=== PATIENT | male | born 1975 | race Caucasian/White ===

== ENCOUNTER → 2019-06-11 07:20 | Outpatient (CLI) | payer OTHER, SELFPAY ==
[2019-05-15 10:14] VITALS: BMI 51.7
--- NOTE | 2019-06-12 08:18 | PFT ---
INTRODUCTION: The patient is a 43-year-old male who presents for pulmonary function studies secondary to a diagnosis of dyspnea. Respiratory therapy reports good patient effort. Bronchodilators were used during testing. INTERPRETATION: Forced expiration spirometry demonstrates no evidence of a large airways obstructive ventilatory defect. There was no significant response to aerosolized bronchodilators. Spirograms are of good quality and plateau normally. Body plethysmography was performed and reveals lung volumes to be within normal limits. Diffusing capacity by single breath CO is also within normal limits at 94% of predicted. IMPRESSION: Normal spirometry, lung volumes and diffusing capacity.
== END ==
PROVIDERS: Referring Provider Internal Medicine Critical Care Medicine; Visit Provider Internal Medicine Critical Care Medicine
DX: R06.00 Dyspnea, unspecified (principal)
CPT/HCPCS: 94060; 94726; 94729

== ENCOUNTER → 2023-02-09 | Outpatient (CLI) | payer OTHER, SELFPAY ==
[2023-02-09 18:18] LABS: Hemoglobin A1c 5.4 % (3.8-5.6)
[2023-02-09 18:30] LABS: Cholesterol 194 mg/dL (200); High Density Lipoprotein 39 mg/dL; Rheumatoid Factor < 10.0 IU/mL (<15); Triglycerides 153 mg/dL; Very Low Density Lipoprotein 31 mg/dL (5-40)
[2023-02-13 15:08] LABS: Albumin 3.6 g/dL (2.9-4.4); Alpha-1-Globulins 0.2 g/dL (0.0-0.4); Alpha-2-Globulins 0.8 g/dL (0.4-1.0); Gamma Globulin 1.6 g/dL (0.4-1.8); Immunoglobulin A 320 mg/dL (90-386); Immunoglobulin G 1568 mg/dL (603-1613); Immunoglobulin M 171 mg/dL (20-172); PROEL- TOTAL PROTEIN 7.3 g/dL (6.0-8.5)
== END | disposition home or self-care (01) ==
LOC: MTLAB 15:16
PROVIDERS: PCP Internal Medicine; Referring Provider Physician Assistant; Visit Provider Physician Assistant
DX: L30.9 Dermatitis, unspecified (principal); L82.1 Other seborrheic keratosis; L57.8 Other skin changes due to chronic exposure to nonionizing radiation; X32.XXXA Exposure to sunlight, initial encounter; D22.5 Melanocytic nevi of trunk; L81.4 Other melanin hyperpigmentation; L90.5 Scar conditions and fibrosis of skin; L91.8 Other hypertrophic disorders of the skin; D48.5 Neoplasm of uncertain behavior of skin; R20.8 Other disturbances of skin sensation; L98.8 Other specified disorders of the skin and subcutaneous tissue; L81.8 Other specified disorders of pigmentation; Z71.89 Other specified counseling; Z85.038 Personal history of other malignant neoplasm of large intestine; Z80.8 Family history of malignant neoplasm of other organs or systems
CPT/HCPCS: 36415; 80061; 82784; 83036; 84165; 86038; 86334; 86431